=== PATIENT | male | born 1970 | race Caucasian/White ===

== ENCOUNTER 2025-04-18 03:27 | Emergency (ER) | payer MEDICAID ==
[~2025-04-18] VITALS: Ht 182.9 cm; Wt 127.3 kg
[2025-04-18 03:33] VITALS: BP 144/90; PULSE 77; RESP 16; TEMP 98.2; O2SAT 96
[2025-04-18] MEDS: HYDROCODONE/ACETAMINOPHEN 5-325 MG TABLET PO ONE (05:01)
[2025-04-18] MEDS ORDERED: HYDR-4072 PO (05:15)
== END 2025-04-18 05:30 | disposition home or self-care (01) ==
LOC: EMS 03:30
DX: K02.9 Dental caries, unspecified (principal); K03.81 Cracked tooth; E78.00 Pure hypercholesterolemia, unspecified; I10 Essential (primary) hypertension; Z98.890 Other specified postprocedural states; Z79.2 Long term (current) use of antibiotics; Z79.899 Other long term (current) drug therapy
CPT/HCPCS: 99283